=== PATIENT | female | born 1985 | race Caucasian/White ===

== ENCOUNTER 2022-08-06 19:21 | Emergency (ER) | payer MEDICAID ==
[~2022-08-06 19:21] MED LIST: ESOM20CA PO; HYDR-4353 PO; NORE1PAT TP; OMEP20TA43 PO; ONDA4TAB6 PO
--- NOTE | 2022-08-06 20:26 | NUR ---
PAGED CHIARA NURSE REGARDING PT
[2022-08-06 23:08] LABS: URINE HCG NEGATIVE (NEG)
[2022-08-06 23:17] LABS: CLARITY,URINE SLIGHTLY CLOUDY (Clear); COLOR,URINE YELLOW (Yellow); GLUCOSE, URINE NEGATIVE (Neg); KETONES,URINE TRACE mg/dl (Neg); LEUKOCYTE ESTERASE ,URINE NEGATIVE (Neg); NITRITES, URINE NEGATIVE (Neg); OCCULT BLOOD,URINE TRACE-INTACT (Neg); PH,URINE 5.5 (4.8-8.0); PROTEIN,URINE NEGATIVE (Neg); UROBILINOGEN,URINE 0.2 E.U/dL (0.2-1.0)
[2022-08-06 23:22] LABS: UA COLLECTION TYPE CLN CATCH MIDSTREAM
[2022-08-06 23:24] LABS: BACTERIA,URINE 1+ /HPF (Neg); SQUAMOUS EPITHELIAL CELL,UR FEW /LPF (FEW); WBC,URINE 0-4 /HPF (0-4)
[2022-08-06 23:25] LABS: MUCUS STRANDS FEW /LPF (Neg)
[2022-08-07] MEDS ORDERED: LEVONORGESTREL 1.5MG tablet 1.5 MG TABLET PO ONE (00:10)
[2022-08-07] MEDS ORDERED: TINIDAZOLE 500 MG TABLET PO ONE (00:10)
[2022-08-07] MEDS ORDERED: LIDOCAINE IM ONE (00:10)
[2022-08-07] MEDS ORDERED: CEFTRIAXONE 1000 MG IM ONE (00:10)
[2022-08-07] MEDS ORDERED: azithromycin 250mg tablet PO ONE (00:10)
[2022-08-07] MEDS ORDERED: AMOX-117 PO (02:19)
[2022-08-07] MEDS ORDERED: TETanus/Pertussis (Acell)/Diphther VAC/PF (Tdap-Adult) 0.5ml syringe IMVAC ONE (02:20)
[2022-08-07 04:25] VITALS: BP 127/86
== END 2022-08-07 04:34 | disposition home or self-care (01) ==
LOC: EEVIPCON 19:21 → ER 19:21
DX: S61.412A Laceration without foreign body of left hand, initial encounter (principal); S06.0X0A Concussion without loss of consciousness, initial encounter; Z04.41 Encounter for examination and observation following alleged adult rape; M54.50 Low back pain, unspecified; R58 Hemorrhage, not elsewhere classified; F17.200 Nicotine dependence, unspecified, uncomplicated; F12.90 Cannabis use, unspecified, uncomplicated; Z91.040 Latex allergy status; T74.21XA Adult sexual abuse, confirmed, initial encounter; Y93.89 Activity, other specified; Y92.89 Other specified places as the place of occurrence of the external cause; Y99.8 Other external cause status
CPT/HCPCS: 70450; 81001; 81025; 90471; 90715; 96372; 99284; J0696

== ENCOUNTER 2022-11-21 09:29 | Emergency (ER) | payer MEDICAID, OTHER ==
[~2022-11-21] VITALS: Ht 152.4 cm; Wt 57.7 kg
[2022-11-21] MEDS ORDERED: haloperidol lactate 5mg/ml inj IM ONE (10:00)
[2022-11-21] MEDS ORDERED: LORazepam 2 mg/ml vial IM ONE (10:00)
--- NOTE | 2022-11-21 10:12 | NUR ---
MEDS PULLED FOR PROVIDER - HALDOL AND ATIVAN ADMINISTERED BY PROVIDER. [employer] AND SECURITY HAVE BEEN PRESENT OUTSIDE ROOM FOR STAFF SAFETY. PTS BEHAVIOR IS ERRATIC AND SHE IS YELLING OBSCINITIES. SHE IS NOT FOLLOWING SAFETY INSTRUCTIONS.
[2022-11-21 10:36] LABS: HCG SERUM QL NEGATIVE
[2022-11-21 11:27] VITALS: BP 146/109
== END 2022-11-21 11:15 ==
LOC: ER 09:30
DX: F10.920 Alcohol use, unspecified with intoxication, uncomplicated (principal); V89.2XXA Person injured in unspecified motor-vehicle accident, traffic, initial encounter; Y93.89 Activity, other specified; Y92.89 Other specified places as the place of occurrence of the external cause; Y99.8 Other external cause status
CPT/HCPCS: 36415; 70450; 84703; 99284

== ENCOUNTER 2024-01-10 17:04 | Emergency (ER) | payer MEDICAID ==
[~2024-01-10] VITALS: Ht 152.4 cm; Wt 60.0 kg
[2024-01-10] MEDS: normal saline 1000ML IV soln IVB ONE ×2 (17:50→18:18)
[2024-01-10] MEDS: diphenhydrAMINE 50 mg/ml inj IV ONE (17:50)
[2024-01-10] MEDS: metoclopramide 5 mg/ml inj IV ONE (17:50)
[2024-01-10] MEDS ORDERED: ketorolac trometh. 30mg/ml inj. IV ONE (18:05)
[2024-01-10 18:17] LABS: BASOPHILS # (AUTO) 0.1 X10'3 (0-0.2); BASOPHILS % (AUTO) 0.7 % (0-1); EOSINOPHILS % (AUTO) 0.4 % (0-6); HEMATOCRIT 37.8 % (35.0-45.0); HEMOGLOBIN 12.7 g/dl (12.0-16.0); LYMPHOCYTES # (AUTO) 2.2 X10'3 (1.1-4.8); LYMPHOCYTES % (AUTO) 19.1 % (21-51); MEAN CORPUSCULAR HEMOGLOBIN 30.8 PG (27.0-31.0); MEAN CORPUSCULAR HGB CONC 33.6 g/dL (33.0-36.5); MEAN CORPUSCULAR VOLUME 91.7 FL (78-98); MEAN PLATELET VOLUME 7.9 FL (7.4-10.4); MONOCYTES # (AUTO) 0.9 X10'3 (0-0.9); MONOCYTES % (AUTO) 8.2 % (2-12); NEUTROPHILS # (AUTO) 8.2 X10'3 (1.8-7.7); NEUTROPHILS % (AUTO) 71.6 % (42-75); PLATELET COUNT 386 X10'3 (140-440); RED BLOOD COUNT 4.12 X10'6 (4.20-5.60); RED CELL DISTRIBUTION WIDTH 14.9 % (11.5-14.5); WHITE BLOOD COUNT 11.5 X10'3 (4.5-11.0)
[2024-01-10 18:17] LABS: URINE HCG NEGATIVE (NEG)
[2024-01-10] MEDS: ketorolac tromethamine 15mg/ml inj. IV ONE (18:17)
[2024-01-10 18:18] LABS: BILIRUBIN,URINE SMALL (Neg); CLARITY,URINE CLOUDY (Clear); COLOR,URINE YELLOW (Yellow); GLUCOSE, URINE NEGATIVE (Neg); KETONES,URINE TRACE mg/dl (Neg); LEUKOCYTE ESTERASE ,URINE NEGATIVE (Neg); NITRITES, URINE NEGATIVE (Neg); OCCULT BLOOD,URINE NEGATIVE (Neg); PH,URINE 8.5 (4.8-8.0); PROTEIN,URINE 30 mg/dl (Neg)
[2024-01-10 18:30] LABS: UA COLLECTION TYPE NON-SPECIFIED
[2024-01-10 18:33] LABS: ALANINE AMINOTRANSFERASE 16 U/L (12-78); ALBUMIN 3.5 G/DL (3.4-5.0); ALBUMIN/GLOBULIN RATIO 1.1 (1.1-1.5); ALKALINE PHOSPHATASE 59 IU/L (46-116); ANION GAP 9 (8-16); ASPARTATE AMINO TRANSFERASE 11 U/L (10-37); BILIRUBIN,TOTAL 0.3 MG/DL (0.1-1.0); BLOOD UREA NITROGEN 4 MG/DL (7-18); BUN/CREATININE RATIO 6.3 (10.0-20.0); CALCIUM 8.7 MG/DL (8.5-10.1); CHLORIDE 105 MMOL/L (99-107); CREATININE 0.63 MG/DL (0.40-0.90); GLUCOSE 88 MG/DL (70-104); LIPASE 268 U/L (16-77); POTASSIUM 3.3 MMOL/L (3.5-5.1); SODIUM 141 MMOL/L (135-145); TOTAL CARBON DIOXIDE 27.1 MMOL/L (24-32); TOTAL PROTEIN 6.7 G/DL (6.4-8.2); eCRCL 89 ML/MIN; eGFR > 90 ML/MIN
[2024-01-10 18:33] LABS: SQUAMOUS EPITHELIAL CELL,UR MANY /LPF (FEW)
[2024-01-10 18:34] LABS: BACTERIA,URINE 1+ /HPF (Neg); RBC,URINE NONE SEEN /HPF (0-2); WBC,URINE 0-4 /HPF (0-4)
[2024-01-10 18:38] LABS: MUCUS STRANDS MANY /LPF (Neg)
[2024-01-10 18:39] LABS: AMORPHOUS PHOSPHATES 3+
[2024-01-10] MEDS: glycopyrrolate 0.2mg/ml inj IV ONE (19:12)
[2024-01-10] MEDS: morphine 4 MG/ML inj SYRINge IV ONE (19:13)
[2024-01-10] MEDS ORDERED: ONDA4TAB12 PO (20:18)
[2024-01-10] MEDS ORDERED: DICY10CA88 PO (20:18)
[2024-01-11 03:50] VITALS: BP 127/76; PULSE 84; RESP 16; TEMP 98.1; O2SAT 99
== END 2024-01-10 19:30 | disposition home or self-care (01) ==
LOC: ER 17:04
DX: R10.13 Epigastric pain (principal); R10.10 Upper abdominal pain, unspecified; F12.90 Cannabis use, unspecified, uncomplicated; Z91.040 Latex allergy status; Z79.899 Other long term (current) drug therapy
CPT/HCPCS: 36415; 74176; 76700; 80053; 81001; 81025; 83690; 85025; 96361; 96374; 96375; 99285; J1200; J1885; J2270; J2765; J3490; J7030

== ENCOUNTER 2024-06-03 14:38 | Emergency (ER) | payer MEDICAID ==
[~2024-06-03] VITALS: Ht 160 cm; Wt 49.7 kg
[~2024-06-03 14:38] MED LIST changes: +ONDA-243 PO
[2024-06-03] MEDS ORDERED: iohexol 300mg/ml 100ml inj. ONE (15:29)
[2024-06-03 15:38] LABS: BASOPHILS # (AUTO) 0.1 X10'3 (0-0.2); BASOPHILS % (AUTO) 0.9 % (0-1); EOSINOPHILS # (AUTO) 0.1 X10'3 (0-0.9); EOSINOPHILS % (AUTO) 0.6 % (0-6); HEMATOCRIT 36.4 % (35.0-45.0); HEMOGLOBIN 12.4 g/dl (12.0-16.0); LYMPHOCYTES # (AUTO) 2.2 X10'3 (1.1-4.8); LYMPHOCYTES % (AUTO) 20.6 % (21-51); MEAN CORPUSCULAR HEMOGLOBIN 30.9 PG (27.0-31.0); MEAN CORPUSCULAR HGB CONC 34.1 g/dL (33.0-36.5); MEAN CORPUSCULAR VOLUME 90.8 FL (78-98); MEAN PLATELET VOLUME 7.2 FL (7.4-10.4); MONOCYTES # (AUTO) 0.5 X10'3 (0-0.9); NEUTROPHILS # (AUTO) 7.7 X10'3 (1.8-7.7); NEUTROPHILS % (AUTO) 72.9 % (42-75); PLATELET COUNT 394 X10'3 (140-440); RED BLOOD COUNT 4.01 X10'6 (4.20-5.60); RED CELL DISTRIBUTION WIDTH 13.8 % (11.5-14.5); WHITE BLOOD COUNT 10.5 X10'3 (4.5-11.0)
[2024-06-03 15:46] LABS: APTT 26 SECONDS (22-32); PROTHROMBIN TIME 10.5 SECONDS (9.0-12.0)
[2024-06-03 15:48] LABS: ALANINE AMINOTRANSFERASE 23 U/L (12-78); ALBUMIN 3.6 G/DL (3.4-5.0); ALBUMIN/GLOBULIN RATIO 1.2 (1.1-1.5); ALKALINE PHOSPHATASE 71 IU/L (46-116); ANION GAP 10 (8-16); ASPARTATE AMINO TRANSFERASE 15 U/L (10-37); BILIRUBIN,TOTAL 0.4 MG/DL (0.1-1.0); BLOOD UREA NITROGEN 7 MG/DL (7-18); BUN/CREATININE RATIO 13.2 (10.0-20.0); CALCIUM 8.8 MG/DL (8.5-10.1); CHLORIDE 104 MMOL/L (99-107); CREATININE 0.53 MG/DL (0.40-0.90); GLUCOSE 111 MG/DL (70-104); POTASSIUM 3.5 MMOL/L (3.5-5.1); SODIUM 141 MMOL/L (135-145); TOTAL CARBON DIOXIDE 27.4 MMOL/L (24-32); TOTAL PROTEIN 6.5 G/DL (6.4-8.2); eCRCL 114 ML/MIN; eGFR > 90 ML/MIN
[2024-06-03 15:58] LABS: C-REACTIVE PROTEIN 0.95 MG/DL (0.0-0.5); CREATINE KINASE 114 U/L (26-192); THYROID STIMULATING HORMONE 0.72 ulU/ml (0.34-4.50)
[2024-06-03 16:10] LABS: HCG SERUM QL NEGATIVE
[2024-06-03 19:42] VITALS: BP 101/67; PULSE 73; RESP 16; TEMP 98.2; O2SAT 98
[2024-06-04] MEDS ORDERED: GADOTERATE MEGLUMINE 7.5 MMOL/15 ML VIAL IV ONE (08:54)
== END 2024-06-03 19:29 | disposition home or self-care (01) ==
LOC: ER 14:39
DX: D32.0 Benign neoplasm of cerebral meninges (principal); G40.802 Other epilepsy, not intractable, without status epilepticus; F12.90 Cannabis use, unspecified, uncomplicated; Z91.040 Latex allergy status; Z79.899 Other long term (current) drug therapy; Z72.89 Other problems related to lifestyle
CPT/HCPCS: 36415; 70450; 70553; 71045; 80053; 82550; 83605; 84439; 84443; 84484; 84703; 85025; 85610; 85651; 85730; 86140; 93005; 99291; A9575; Q9967

== ENCOUNTER 2024-06-13 10:19 | Emergency (ER) | payer MEDICAID ==
[~2024-06-13] VITALS: Ht 152.4 cm; Wt 46.6 kg
[2024-06-13 10:40] VITALS: TEMP 98
[2024-06-13 14:11] LABS: BASOPHILS # (AUTO) 0.1 X10'3 (0-0.2); BASOPHILS % (AUTO) 0.9 % (0-1); EOSINOPHILS # (AUTO) 0.2 X10'3 (0-0.9); EOSINOPHILS % (AUTO) 1.2 % (0-6); HEMATOCRIT 39.3 % (35.0-45.0); HEMOGLOBIN 13.1 g/dl (12.0-16.0); LYMPHOCYTES # (AUTO) 2.7 X10'3 (1.1-4.8); MEAN CORPUSCULAR HEMOGLOBIN 30.6 PG (27.0-31.0); MEAN CORPUSCULAR HGB CONC 33.4 g/dL (33.0-36.5); MEAN CORPUSCULAR VOLUME 91.7 FL (78-98); MONOCYTES # (AUTO) 0.9 X10'3 (0-0.9); MONOCYTES % (AUTO) 6.9 % (2-12); NEUTROPHILS # (AUTO) 9.7 X10'3 (1.8-7.7); PLATELET COUNT 420 X10'3 (140-440); RED BLOOD COUNT 4.29 X10'6 (4.20-5.60); RED CELL DISTRIBUTION WIDTH 14.8 % (11.5-14.5); WHITE BLOOD COUNT 13.6 X10'3 (4.5-11.0)
[2024-06-13 14:29] LABS: ALANINE AMINOTRANSFERASE 23 U/L (12-78); ALBUMIN 3.5 G/DL (3.4-5.0); ALBUMIN/GLOBULIN RATIO 1.1 (1.1-1.5); ALKALINE PHOSPHATASE 75 IU/L (46-116); ANION GAP 8 (8-16); ASPARTATE AMINO TRANSFERASE 12 U/L (10-37); BILIRUBIN,TOTAL 0.3 MG/DL (0.1-1.0); BLOOD UREA NITROGEN 4 MG/DL (7-18); BUN/CREATININE RATIO 9.1 (10.0-20.0); CALCIUM 8.8 MG/DL (8.5-10.1); CHLORIDE 105 MMOL/L (99-107); CREATININE 0.44 MG/DL (0.40-0.90); GLUCOSE 88 MG/DL (70-104); SODIUM 139 MMOL/L (135-145); TOTAL CARBON DIOXIDE 26.3 MMOL/L (24-32); TOTAL PROTEIN 6.8 G/DL (6.4-8.2); eCRCL 126 ML/MIN; eGFR > 90 ML/MIN
[2024-06-13 15:02] VITALS: BP 112/86; PULSE 86; RESP 16; O2SAT 98
[2024-06-13 15:09] LABS: BETA HCG,QUANTITATIVE < 1.0 mIU/ml
== END 2024-06-13 15:04 | disposition home or self-care (01) ==
LOC: ER 10:19
DX: G40.802 Other epilepsy, not intractable, without status epilepticus (principal); R11.0 Nausea; F17.200 Nicotine dependence, unspecified, uncomplicated; F31.9 Bipolar disorder, unspecified; F12.90 Cannabis use, unspecified, uncomplicated; Z91.040 Latex allergy status; Z79.899 Other long term (current) drug therapy; Z72.89 Other problems related to lifestyle; O02.81 Inappropriate change in quantitative human chorionic gonadotropin (hCG) in early pregnancy
CPT/HCPCS: 36415; 80053; 84702; 85025; 99285